=== PATIENT | male | born 1970 | race Caucasian/White ===

== ENCOUNTER → 2022-06-22 | Outpatient (CLI) | payer BC ==
--- NOTE | 2022-06-23 07:43 | MR ---
EXAMINATION TYPE: MR shoulder RT wo con DATE OF EXAM: 06/22/2022 COMPARISON: Outside right shoulder x-ray May 19, 2022 HISTORY: Right shoulder pain and limited movement for 1 year TECHNIQUE: Multiplanar, multisequence imaging of the right shoulder is performed without contrast. FINDINGS: Rotator Cuff: Distal supraspinatus and infraspinatus tendon are intact. Rotator cuff muscle bulk is p reserved. Acromioclavicular Joint: Mild/moderate narrowing and capsular hypertrophy. Loss of underlying fat sonal ne sagittal image 13 for reference. Subchondral cystic change in the distal clavicle. Glenohumeral Joint: Small joint effusion. No significant spurring. Labrum: The labrum appears grossly intact given limitation of non-arthrogram study. Biceps Tendon: The long head of biceps is in normal location within bicipital groove. Bone marrow signal: No focal abnormal marrow signal is appreciated. Other: Mild fluid signal subdeltoid/subacromial bursa. IMPRESSION: No rotator cuff tear is evident. 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 Currently clinically.
== END | disposition home or self-care (01) ==
LOC: RADMRIMAIN 18:34
PROVIDERS: ATTEND Orthopaedic Surgery
DX: M19.011 Primary osteoarthritis, right shoulder (principal); M25.511 Pain in right shoulder